=== PATIENT | male | born 1975 | race Caucasian/White ===

== ENCOUNTER → 2016-09-12 | Outpatient (CLI) | payer OTHER | LOC: KOH-I 09-07 14:00 | DX: M54.16 Radiculopathy, lumbar region (principal); M54.5 Low back pain; M54.6 Pain in thoracic spine; M51.16 Intervertebral disc disorders with radiculopathy, lumbar region; M51.17 Intervertebral disc disorders with radiculopathy, lumbosacral region | CPT/HCPCS: 72146; 72148 ==